=== PATIENT | female | born 1970 | race Caucasian/White ===

== ENCOUNTER 2018-01-25 05:49 | Day surgery (SDC) | payer BC ==
[~2018-01-25] VITALS: Ht 152.4 cm; Wt 69.8 kg
[2018-01-25 07:12] VITALS: BP 122/64
[2018-01-25 11:13] VITALS: BP 95/54
[2018-01-25 15:57] VITALS: BP 107/59
[2018-01-25 19:26] VITALS: BP 126/65
[2018-01-26 00:03] VITALS: BP 115/66
[2018-01-26 03:56] VITALS: BP 103/59
[2018-01-26 06:28] LABS: BASOPHIL (%) 0.2 % (0-1); EOSINOPHIL (%) 0.2 % (0-5); HEMATOCRIT 33.3 % (36.0-46.0); HEMOGLOBIN 11.2 G/DL (11.9-15.5); IMMATURE GRANULOCYTE (%) 0.3 % (0.0-0.7); LYMPHOCYTE (%) 13.5 % (15-42); LYMPHOCYTE COUNT 1.7 K/uL (1.0-2.8); MCH 31.9 PG (29.0-34.0); MCHC 33.6 G/DL (30.0-36.0); MCV 94.9 FL (83-99); MONOCYTE (%) 7.6 % (3-12); NEUTROPHIL (%) 78.2 % (45-76); PLATELET COUNT 230 K/uL (156-360); RBC DIS.WIDTH-CV 12.9 % (11.8-14.6); RBC DIS.WIDTH-SD 45.1 % (39-53); RED BLOOD COUNT 3.51 M/uL (3.80-5.20); WHITE BLOOD COUNT 12.7 K/uL (4.1-10.2)
[2018-01-26 06:52] LABS: CHLORIDE 106 MEQ/L (99-109); CREATININE 0.7 MG/DL (0.6-1.3); GFR ESTIMATE (CALCULATED) > 59 mL/min/; GLUCOSE 105 mg/dL (70-99); POTASSIUM 4.3 MEQ/L (3.7-5.4); SODIUM 139 MEQ/L (136-147); UREA NITROGEN (BUN) 9 mg/dL (9-23)
[2018-01-26 07:31] VITALS: BP 116/73
== END 2018-01-26 10:07 | disposition home or self-care (01) ==
LOC: SDC 05:49 → 2SOUTH 09:45 → ENRESERV 09:53 → SDC 10:47 → 2EAST 11:05 → SDC 12:05 → 2EAST 01-26 10:07
PROVIDERS: Obstetrics & Gynecology Gynecology
PROC: 0UT94ZZ Resection of Uterus, Percutaneous Endoscopic Approach (ICD-10-PCS; principal; 2018-01-25)
PROC: 0UT74ZZ Resection of Bilateral Fallopian Tubes, Percutaneous Endoscopic Approach (ICD-10-PCS; principal; 2018-01-25)
DX: N80.0 Endometriosis of uterus (principal); N87.9 Dysplasia of cervix uteri, unspecified; D25.0 Submucous leiomyoma of uterus; N88.2 Stricture and stenosis of cervix uteri; F17.200 Nicotine dependence, unspecified, uncomplicated
CPT/HCPCS: 80048; 81025; 85025; 87086; 88307; G0378; J0690; J1100; J1170; J1644; J1885; J2001; J2405; J2710; J3010; J3475; J7120; J7643; S0020